=== PATIENT | female | born 1965 | race Two or more races ===

== ENCOUNTER → 2018-02-07 | Emergency (ER) | payer OTHER ==
[~2018-02-07] VITALS: Ht 167.6 cm; Wt 62.6 kg
[~2018-02-07] MED LIST: CLONAZEPAM1 MG; DICY20TA; FIORICET 50-301 EACH; FLEXERIL10 MG; INTESTINEX680 MG PO; LAMICTAL150 M1; LAMICTAL200 M1; LEVSIN/SL0.125 MG PO; LYRICA300 MG; NORFLEX100MG; PEPCID40 MG PO; PHENERGAN25 MG PO; PRILOSEC OTC20 MG; SEROQUEL XR150 MG; TOPAMAX50 MG; WELLBUTRIN SR100 MG; ZANTAC150 MG PO; ZANTAC300 MG
== END | disposition home or self-care (01) ==
LOC: ER 21:40
DX: K29.60 Other gastritis without bleeding (principal); R10.13 Epigastric pain

== ENCOUNTER 2018-11-20 07:26 | Outpatient (CLI) | payer OTHER | END 2018-11-20 07:33 | disposition home or self-care (01) | LOC: SONOGRAMA 07:26 | DX: E04.2 Nontoxic multinodular goiter (principal) ==

== ENCOUNTER 2019-02-15 05:57 | Emergency (ER) | payer OTHER ==
[~2019-02-15] VITALS: Ht 167.6 cm; Wt 59.0 kg
[2019-02-15] MEDS ORDERED: SYNTHROID50 MCG (06:16)
== END 2019-02-15 11:24 | disposition home or self-care (01) ==
LOC: ER 05:57
DX: K29.60 Other gastritis without bleeding (principal); N39.0 Urinary tract infection, site not specified; B96.89 Other specified bacterial agents as the cause of diseases classified elsewhere

== ENCOUNTER → 2019-05-30 | Outpatient (CLI) | payer OTHER ==
[~2019-05-30] MED LIST changes: +SYNTHROID50 MCG
== END | disposition home or self-care (01) ==
LOC: RAD 10:15
DX: M54.5 Low back pain (principal)

== ENCOUNTER 2019-12-28 07:21 | Outpatient (CLI) | payer OTHER | END 2019-12-28 07:24 | disposition home or self-care (01) | LOC: SONOGRAMA 07:21 | DX: E04.1 Nontoxic single thyroid nodule (principal) ==

== ENCOUNTER 2020-02-12 07:14 | Outpatient (CLI) | payer OTHER | END 2020-02-12 07:31 | disposition home or self-care (01) | LOC: NUCLEAR 07:14 | DX: R07.89 Other chest pain (principal) ==

== ENCOUNTER → 2020-05-12 | Outpatient (CLI) | payer OTHER | END | disposition home or self-care (01) | LOC: NUCLEAR 05-02 12:00 | PROVIDERS: ATTEND Obstetrics & Gynecology | DX: M81.0 Age-related osteoporosis without current pathological fracture (principal) ==

== ENCOUNTER 2020-08-11 16:09 | Outpatient (CLI) | payer OTHER | END 2020-08-11 16:15 | disposition home or self-care (01) | LOC: RAD 16:09 | PROVIDERS: ATTEND Internal Medicine | DX: M25.571 Pain in right ankle and joints of right foot (principal) ==

== ENCOUNTER 2021-01-29 16:49 | Emergency (ER) | payer OTHER ==
[~2021-01-29] VITALS: Ht 165.1 cm; Wt 68.0 kg
[2021-01-29] MEDS ORDERED: INVEGA6 MG PO (17:12)
[2021-01-29] MEDS ORDERED: ATIVAN1 M1 PO (17:13)
[2021-01-29] MEDS ORDERED: INTERMEZZO3.5 MG SL (17:13)
[2021-01-29] MEDS ORDERED: ACID REDUCER20 M1 PO (17:14)
== END 2021-01-29 21:24 | disposition home or self-care (01) ==
LOC: ER 16:49
DX: S00.83XA Contusion of other part of head, initial encounter (principal); S60.212A Contusion of left wrist, initial encounter; R55 Syncope and collapse; W01.198A Fall on same level from slipping, tripping and stumbling with subsequent striking against other object, initial encounter; Y93.E1 Activity, personal bathing and showering; Y92.012 Bathroom of single-family (private) house as the place of occurrence of the external cause; Y99.8 Other external cause status

== ENCOUNTER 2021-02-07 08:02 | Outpatient (CLI) | payer OTHER ==
[~2021-02-07 08:02] MED LIST changes: +ACID REDUCER20 M1 PO; +ATIVAN1 M1 PO; +INTERMEZZO3.5 MG SL; +INVEGA6 MG PO
== END 2021-02-07 08:04 | disposition home or self-care (01) ==
LOC: NUCLEAR 08:02
PROVIDERS: ATTEND Psychiatry & Neurology Clinical Neurophysiology
DX: R55 Syncope and collapse (principal)

== ENCOUNTER 2021-09-18 08:00 | Outpatient (CLI) | payer OTHER | END 2021-09-18 08:30 | disposition home or self-care (01) | LOC: PPH VACUNA 08:00 | PROVIDERS: ATTEND Emergency Medicine Pediatric Emergency Medicine | DX: Z23 Encounter for immunization (principal) ==

== ENCOUNTER 2021-12-18 22:46 | Emergency (ER) | payer OTHER ==
[~2021-12-18] VITALS: Ht 165.1 cm; Wt 75.3 kg
== END 2021-12-19 02:50 | disposition home or self-care (01) ==
LOC: ER 22:46
DX: R10.13 Epigastric pain (principal); M79.7 Fibromyalgia; G43.909 Migraine, unspecified, not intractable, without status migrainosus; K21.9 Gastro-esophageal reflux disease without esophagitis

== ENCOUNTER 2021-12-24 18:34 | Emergency (ER) | payer OTHER ==
[~2021-12-24] VITALS: Ht 165.1 cm; Wt 72.6 kg
== END 2021-12-24 22:08 | disposition home or self-care (01) ==
LOC: ER 18:34
DX: K52.89 Other specified noninfective gastroenteritis and colitis (principal); R10.11 Right upper quadrant pain

== ENCOUNTER 2022-01-29 08:00 | Outpatient (CLI) | payer OTHER | END 2022-01-29 08:30 | disposition home or self-care (01) | LOC: PPH VACUNA 08:00 | PROVIDERS: ATTEND Emergency Medicine Pediatric Emergency Medicine | DX: Z23 Encounter for immunization (principal) ==

== ENCOUNTER 2022-03-08 11:27 | Outpatient (CLI) | payer OTHER | END 2022-03-08 11:35 | disposition home or self-care (01) | LOC: RAD 11:27 | PROVIDERS: ATTEND Physical Medicine & Rehabilitation | DX: M54.59 Other low back pain (principal) ==

== ENCOUNTER 2022-07-31 07:40 | Outpatient (CLI) | payer OTHER | END 2022-07-31 07:46 | disposition home or self-care (01) | LOC: SONOGRAMA 07:40 | PROVIDERS: ATTEND Student in an Organized Health Care Education/Training Program | DX: R31.9 Hematuria, unspecified (principal) ==

== ENCOUNTER 2022-09-13 06:06 | Outpatient (CLI) | payer OTHER | END 2022-09-13 06:07 | disposition home or self-care (01) | LOC: LAB 06:06 | PROVIDERS: ATTEND Internal Medicine | DX: U07.1 COVID-19 (principal); B34.1 Enterovirus infection, unspecified ==

== ENCOUNTER 2022-09-14 07:34 | Outpatient (CLI) | payer OTHER | END 2022-09-14 07:37 | disposition home or self-care (01) | LOC: NUCLEAR 07:34 | PROVIDERS: ATTEND Internal Medicine Cardiovascular Disease | DX: R07.89 Other chest pain (principal) | CPT/HCPCS: 78452; 93017; A9500 ==

== ENCOUNTER 2022-10-10 12:51 | Outpatient (CLI) | payer OTHER | END 2022-10-10 13:01 | disposition home or self-care (01) | LOC: PPH VACUNA 12:51 | PROVIDERS: ATTEND Emergency Medicine Pediatric Emergency Medicine | DX: Z23 Encounter for immunization (principal) ==

== ENCOUNTER 2024-05-04 10:50 | Outpatient (CLI) | payer OTHER | END 2024-05-04 10:57 | disposition home or self-care (01) | LOC: RAD 10:50 | DX: M79.671 Pain in right foot (principal) ==

== ENCOUNTER 2024-08-24 08:18 | Outpatient (CLI) | payer OTHER | END 2024-08-24 08:22 | disposition home or self-care (01) | LOC: SONOGRAMA 08:18 | PROVIDERS: ATTEND Pathology Anatomic Pathology | DX: D34 Benign neoplasm of thyroid gland (principal); E07.89 Other specified disorders of thyroid; R59.0 Localized enlarged lymph nodes; E04.2 Nontoxic multinodular goiter ==

== ENCOUNTER 2024-10-21 19:35 | Emergency (ER) | payer OTHER ==
[~2024-10-21] VITALS: Ht 152.4 cm; Wt 62.6 kg
[2024-10-21] MEDS ORDERED: DEPAKOTE ER500 MG PO (19:45)
[2024-10-21] MEDS ORDERED: LYRICA100 MG PO (19:45)
[2024-10-21 19:46] VITALS: BP 97/65; O2SAT 100
[2024-10-21] MEDS ORDERED: SYNTHROID50 MCG PO (19:46)
[2024-10-21] MEDS ORDERED: LEXAPRO20 MG PO (19:46)
[2024-10-21] MEDS ORDERED: KETOROLAC TROMETHAMINE 60 MG VIAL IM ONE (22:15)
[2024-10-21 23:08] LABS: PH,URINE 5.5 (5.0-8.0); URINE APPEARANCE Clear; URINE BILIRRUBIN Small (NEGATIVE); URINE BLOOD NHT; URINE COLOR Dark Yellow; URINE GLUCOSE Negative (NEGATIVE); URINE KETONE Trace (NEGATIVE); URINE LEUKOCYTE Small; URINE NITRATE Positive; URINE PROTEIN 30 (NEGATIVE)
[2024-10-21 23:10] LABS: HEMATOCRIT 41.7 % (36.0-45.00); HEMOGLOBIN 13.9 g/dL (12.0-15.00); MEAN CELL VOLUME 100.4 fL (80.00-100.00); MEAN CORPUSCULAR HEMOGLOBIN 33.6 pg (27.00-32.0); MEAN CORPUSCULAR HGB CONC 33.4 g/dl (32.0-36.0); PLATELET COUNT 149 K/uL (150-450); RED BLOOD COUNT 4.15 M/uL (4.00-6.00)
[2024-10-21 23:12] LABS: URINE BACTERIA 326.6 uL (0.0-1933); URINE EPITHELIAL CELLS 17.8 uL (0.0-38.8); URINE RBC 122.8 uL (0.0-20.8); URINE WBC 97.3 uL (0.0-23.2)
[2024-10-21 23:22] LABS: URINE CAST 0.44 uL (0.0-1.40)
[2024-10-22] MEDS ORDERED: CEFTRIAXONE SODIUM 1,000 MG VIAL IM STA (03:18)
[2024-10-22] MEDS ORDERED: KETO10TA2 PO (03:21)
[2024-10-22] MEDS ORDERED: CEPHALEXIN500 MG PO (03:21)
== END 2024-10-22 02:03 | disposition home or self-care (01) ==
LOC: ER 19:37
PROVIDERS: Preventive Medicine Public Health & General Preventive Medicine
DX: S19.9XXA Unspecified injury of neck, initial encounter (principal); W19.XXXA Unspecified fall, initial encounter; Y93.89 Activity, other specified; Y92.098 Other place in other non-institutional residence as the place of occurrence of the external cause; Y99.8 Other external cause status; N39.0 Urinary tract infection, site not specified; R55 Syncope and collapse; E03.8 Other specified hypothyroidism; Z20.822 Contact with and (suspected) exposure to COVID-19
CPT/HCPCS: 36415; 70450; 72125; 96372; 99284; J0696; J1885

== ENCOUNTER 2024-11-25 17:57 | Inpatient (IN) | payer OTHER ==
[~2024-11-25] VITALS: Ht 167.6 cm; Wt 72.6 kg
[~2024-11-25 17:57] MED LIST changes: +CEPHALEXIN500 MG PO; +DEPAKOTE ER500 MG PO; +KETO10TA2 PO; +LEXAPRO20 MG PO; +LYRICA100 MG PO; +SYNTHROID50 MCG PO
--- NOTE | 2024-11-25 18:27 | NUR ---
SE RECIBE PACIENTE ALERTA Y ORIENTADA X3 LA CUAL REFIERE VENIR A CAUSA DE DOLOR ABDOMINAL DESDE Y DIARREAS DESDE EL SABADO PASADO.
[2024-11-25] MEDS ORDERED: FAMOtidine 10 MG/ML (4ML VIAL) IV ONE ×2 (18:45→21:45)
[2024-11-25] MEDS ORDERED: KETOROLAC TROMETHAMINE 60 MG VIAL IM ONE (18:45)
[2024-11-25] MEDS ORDERED: KETOROLAC TROMETHAMINE 30 MG VIAL ONE (18:58)
[2024-11-25] MEDS ORDERED: FAMOTIDINE/PF 20 MG/2 ML VIAL ONE ×2 (18:58→22:43)
--- NOTE | 2024-11-25 19:17 | NUR ---
SE ORIENTA PTE SOBRE TX MEDICO EL CUAL REFIERE ENTENDER.SE LE EXTRAEN MUESTRAS BAJO MEDIDAS ASEPTICAS,SE CANALIZA Y SE ADMINISTRAN MEDICAMENTOS,SE NOTIFICA CT PENDIENTE.
[2024-11-25 19:37] LABS: INR 1.1; PARTIAL THROMBOPLASTIN TIME 29.1 SECONDS (22.0-34.0); PROTHROMBIN TIME 11.9 SECONDS (9.0-11.5)
[2024-11-25 19:41] LABS: ALBUMIN 3.3 gm/dL (3.4-5.0); BILIRUBIN TOTAL 0.38 mg/dL (0.3-1.2); CALCIUM 9.1 mg/dL (8.5-10.1); CREATININE SERUM 0.88 mg/dL (0.55-1.02); GFR 66.23; GLOBULINA 3.4 G/DL (2.4-3.5); POTASSIUM 4.59 mEq/L (3.5-5.1); TOTAL PROTEIN 6.7 gm/dL (6.4-8.2)
[2024-11-25 20:12] LABS: PH,URINE 5.5 (5.0-8.0); URINE APPEARANCE Clear; URINE BILIRRUBIN Negative (NEGATIVE); URINE BLOOD Negative; URINE COLOR Dark Yellow; URINE GLUCOSE Negative (NEGATIVE); URINE KETONE Trace (NEGATIVE); URINE LEUKOCYTE Trace; URINE NITRATE Negative; URINE PROTEIN Negative (NEGATIVE)
[2024-11-25 20:16] LABS: URINE EPITHELIAL CELLS 24.2 uL (0.0-38.8); URINE RBC 12.6 uL (0.0-20.8)
[2024-11-25 20:52] LABS: HEMATOCRIT 39.6 % (36.0-45.00); HEMOGLOBIN 13.6 g/dL (12.0-15.00); MEAN CELL VOLUME 98.7 fL (80.00-100.00); MEAN CORPUSCULAR HEMOGLOBIN 33.8 pg (27.00-32.0); MEAN CORPUSCULAR HGB CONC 34.3 g/dl (32.0-36.0); PLATELET COUNT 148 K/uL (150-450); RED BLOOD COUNT 4.01 M/uL (4.00-6.00); RED CELL DISTRIBUTION WIDTH 13.1 % (11.5-14.5)
[2024-11-25] MEDS ORDERED: CEFTRIAXONE SODIUM 1,000 MG VIAL IV ONE (21:00)
[2024-11-25] MEDS ORDERED: CEFTRIAXONE SODIUM 1,000 MG VIAL ONE (21:01)
[2024-11-25] MEDS ORDERED: MORPHINE SULFATE 4 MG/ML VIAL IV ONE (21:45)
[2024-11-25] MEDS ORDERED: ONDANSETRON HCL 2 MG/ML VIAL IV ONE (21:45)
[2024-11-25] MEDS ORDERED: ONDANSETRON HCL 2 MG/ML VIAL ONE (22:43)
[2024-11-25] MEDS ORDERED: 0.9 % SODIUM CHLORIDE 1,000 ML IV SCH (23:45)
[2024-11-25] MEDS ORDERED: ACETAMINOPHEN 500 MG GEL..CAP PO PRN (23:45)
[2024-11-25] MEDS ORDERED: MORPHINE SULFATE 4 MG/ML CARTRIDGE IV PRN (23:45)
[2024-11-25] MEDS ORDERED: KETOROLAC TROMETHAMINE 30 MG VIAL IU ONE (23:45)
[2024-11-25] MEDS ORDERED: ONDANSETRON HCL 4 MG in 0.9 % SODIUM CHLORIDE 50 ML IV PRN (23:45)
[2024-11-26] MEDS ORDERED: PIPERACILLIN/TAZOBACTAM SODIUM 3.375 GM in DEXTROSE 5 % IN WATER 100 ML IV SCH
[2024-11-26] MEDS ORDERED: PIPERACILLIN/TAZOBACTAM SODIUM 3.375 GM VIAL IV ONE ×2 (00:51→16:45)
[2024-11-26] MEDS ORDERED: KETOROLAC TROMETHAMINE 30 MG VIAL ONE (00:51)
[2024-11-26] MEDS ORDERED: ONDANSETRON HCL 2 MG/ML VIAL ONE (02:18)
[2024-11-26 03:14] VITALS: BP 120/66
[2024-11-26] MEDS ORDERED: LEVOTHYROXINE SODIUM 50 MCG TABLET PO SCH (06:00)
[2024-11-26 07:29] VITALS: BP 126/82; O2SAT 100
[2024-11-26] MEDS ORDERED: Pregabalin 50 MG CAPSULE PO SCH (09:00)
[2024-11-26] MEDS ORDERED: DIVALPROEX SODIUM 500 MG TABLET.DR PO SCH (09:00)
[2024-11-26] MEDS ORDERED: FAMOTIDINE/PF 20 MG in 0.9 % SODIUM CHLORIDE 8 ML IV PUSH SCH (09:00)
[2024-11-26 15:00] VITALS: BP 123/76; O2SAT 97
[2024-11-26] MEDS ORDERED: ENOXAPARIN SODIUM 40 MG/0.4 ML SYRINGE SUBCUTANEO SCH (17:00)
[2024-11-26] MEDS ORDERED: DICYCLOMINE HCL 10 MG CAPSULE PO SCH (17:00)
[2024-11-26 22:42] VITALS: BP 123/61
[2024-11-27 01:53] VITALS: BP 109/64
[2024-11-27 06:37] LABS: HEMATOCRIT 37.6 % (36.0-45.00); HEMOGLOBIN 12.6 g/dL (12.0-15.00); MEAN CORPUSCULAR HEMOGLOBIN 33.8 pg (27.00-32.0); MEAN CORPUSCULAR HGB CONC 33.5 g/dl (32.0-36.0); RED BLOOD COUNT 3.73 M/uL (4.00-6.00)
[2024-11-27 06:47] LABS: PLATELET COUNT 126 K/uL (150-450)
[2024-11-27 07:00] LABS: CALCIUM 8.5 mg/dL (8.5-10.1); CREATININE SERUM 0.83 mg/dL (0.55-1.02); GFR 70.86; POTASSIUM 5.12 mEq/L (3.5-5.1)
[2024-11-27 08:50] VITALS: BP 113/62
[2024-11-28] MEDS ORDERED: TRAZODONE HCL150 MG (21:51)
[2024-11-28] MEDS ORDERED: CELEBREX200MG (21:51)
[2024-11-28] MEDS ORDERED: BUSPIRONE HCL15 MG PO (21:51)
== END 2024-11-27 14:11 | disposition home or self-care (01) | DRG 395 ==
LOC: ER 18:00 → MEDJ 23:45 → SEC-K 23:45 → MEDJ 11-26 16:19
PROVIDERS: General Practice; ADMIT Student in an Organized Health Care Education/Training Program; ATTEND Student in an Organized Health Care Education/Training Program
PROC: BW21ZZZ Computerized Tomography (CT Scan) of Abdomen and Pelvis (ICD-10-PCS; principal; 2024-11-25)
DX: K35.80 Unspecified acute appendicitis (principal); E03.9 Hypothyroidism, unspecified

== ENCOUNTER 2024-11-28 21:30 | Inpatient (IN) | payer OTHER ==
[~2024-11-28] VITALS: Ht 165.1 cm; Wt 61.2 kg
[2024-11-28] MEDS ORDERED: CELEBREX200MG (21:51)
[2024-11-28] MEDS ORDERED: BUSPIRONE HCL15 MG PO (21:51)
[2024-11-28] MEDS ORDERED: TRAZODONE HCL150 MG (21:51)
[2024-11-29] MEDS ORDERED: FAMOTIDINE/PF 20 MG in 0.9 % SODIUM CHLORIDE 8 ML IV PUSH STA (00:18)
[2024-11-29] MEDS ORDERED: PIPERACILLIN/TAZOBACTAM SODIUM 3.375 GM in 0.9 % SODIUM CHLORIDE 100 ML IV SCH (00:19)
[2024-11-29] MEDS ORDERED: PIPERACILLIN/TAZOBACTAM SODIUM 3.375 GM VIAL IV ONE ×3 (00:22→18:53)
[2024-11-29] MEDS ORDERED: ONDANSETRON HCL 2 MG/ML VIAL ONE (00:22)
[2024-11-29] MEDS ORDERED: FAMOTIDINE/PF 20 MG/2 ML VIAL ONE ×2 (00:22→18:53)
[2024-11-29] MEDS ORDERED: KETOROLAC TROMETHAMINE 30 MG VIAL ONE (00:22)
[2024-11-29] MEDS ORDERED: ONDANSETRON HCL 2 MG/ML VIAL IV ONE (00:30)
[2024-11-29] MEDS ORDERED: 0.9 % SODIUM CHLORIDE 1,000 ML IV SCH (00:30)
[2024-11-29] MEDS ORDERED: KETOROLAC TROMETHAMINE 30 MG VIAL IV ONE (00:30)
[2024-11-29 00:59] LABS: HEMOGLOBIN 13.7 g/dL (12.0-15.00); MEAN CELL VOLUME 101.1 fL (80.00-100.00); MEAN CORPUSCULAR HEMOGLOBIN 33.8 pg (27.00-32.0); MEAN CORPUSCULAR HGB CONC 33.5 g/dl (32.0-36.0); PLATELET COUNT 150 K/uL (150-450); RED BLOOD COUNT 4.06 M/uL (4.00-6.00); RED CELL DISTRIBUTION WIDTH 13.3 % (11.5-14.5)
[2024-11-29 02:49] LABS: INR 1.1; PARTIAL THROMBOPLASTIN TIME 29.5 SECONDS (22.0-34.0); PROTHROMBIN TIME 11.9 SECONDS (9.0-11.5)
[2024-11-29 02:55] LABS: ALBUMIN 3.1 gm/dL (3.4-5.0); BILIRUBIN TOTAL 0.44 mg/dL (0.3-1.2); CALCIUM 9.1 mg/dL (8.5-10.1); CREATININE SERUM 0.92 mg/dL (0.55-1.02); GFR 62.92; GLOBULINA 3.2 G/DL (2.4-3.5); POTASSIUM 5.62 mEq/L (3.5-5.1); TOTAL PROTEIN 6.3 gm/dL (6.4-8.2)
[2024-11-29 08:47] LABS: PH,URINE 7.5 (5.0-8.0); URINE APPEARANCE Clear; URINE BILIRRUBIN Negative (NEGATIVE); URINE BLOOD Negative; URINE COLOR Yellow; URINE GLUCOSE Negative (NEGATIVE); URINE KETONE Negative (NEGATIVE); URINE LEUKOCYTE Negative; URINE NITRATE Negative; URINE PROTEIN Negative (NEGATIVE); URINE RBC 3.6 uL (0.0-20.8); URINE UROBILINOGEN 0.2 E.U./dl
[2024-11-29 08:51] LABS: URINE BACTERIA 0 uL (0.0-1933); URINE EPITHELIAL CELLS 0.6 uL (0.0-38.8)
[2024-11-29] MEDS ORDERED: SODIUM CHLORIDE 0.45 % 1,000 ML IV SCH (17:45)
[2024-11-29] MEDS ORDERED: MORPHINE SULFATE 2 MG/ML CARTRIDGE IV PRN (17:45)
[2024-11-29] MEDS ORDERED: ONDANSETRON HCL 4 MG in 0.9 % SODIUM CHLORIDE 50 ML IV PRN (17:45)
[2024-11-29] MEDS ORDERED: FAMOTIDINE/PF 20 MG in 0.9 % SODIUM CHLORIDE 8 ML IV PUSH SCH (17:55)
[2024-11-29] MEDS ORDERED: SODIUM POLYSTYRENE SULFONATE 15 G/4 TSP TSP PO ONE (18:00)
[2024-11-29] MEDS ORDERED: HYOSCYAMINE SULFATE 0.125 MG TAB.SUBL PO ONE (18:00)
[2024-11-29] MEDS ORDERED: PIPERACILLIN/TAZOBACTAM SODIUM 3.375 GM in DEXTROSE 5 % IN WATER 100 ML IV SCH (18:04)
[2024-11-29] MEDS ORDERED: HYOSCYAMINE SULFATE 0.125 MG TAB.SUBL ONE (18:52)
[2024-11-30 00:45] VITALS: BP 103/69; O2SAT 100
[2024-11-30] MEDS ORDERED: LEVOTHYROXINE SODIUM 50 MCG TABLET PO SCH (06:00)
[2024-11-30 08:00] VITALS: BP 109/78; O2SAT 99
[2024-11-30] MEDS ORDERED: ENOXAPARIN SODIUM 40 MG/0.4 ML SYRINGE SUBCUTANEO SCH (09:00)
[2024-11-30] MEDS ORDERED: DIVALPROEX SODIUM 500 MG TABLET.DR PO SCH (09:00)
[2024-11-30] MEDS ORDERED: Pregabalin 50 MG CAPSULE PO SCH (09:00)
[2024-11-30] MEDS ORDERED: PANTOPRAZOLE SODIUM 40 MG/VIAL VIAL IV SCH (09:00)
[2024-11-30 16:00] VITALS: BP 113/76; O2SAT 95
[2024-12-01 01:56] VITALS: BP 111/71; O2SAT 96
[2024-12-01 05:26] LABS: HEMATOCRIT 38.6 % (36.0-45.00); MEAN CELL VOLUME 100.2 fL (80.00-100.00); MEAN CORPUSCULAR HEMOGLOBIN 33.7 pg (27.00-32.0); MEAN CORPUSCULAR HGB CONC 33.6 g/dl (32.0-36.0); PLATELET COUNT 166 K/uL (150-450); RED BLOOD COUNT 3.86 M/uL (4.00-6.00); RED CELL DISTRIBUTION WIDTH 13.1 % (11.5-14.5)
[2024-12-01 05:57] LABS: ALBUMIN 3.1 gm/dL (3.4-5.0); BILIRUBIN TOTAL 0.55 mg/dL (0.3-1.2); CALCIUM 9.5 mg/dL (8.5-10.1); GFR 57.15; GLOBULINA 2.8 G/DL (2.4-3.5); MAGNESIUM 2.1 mg/dL (1.8-2.4); PHOSPHOROUS 3.7 mg/dL (2.5-4.9); POTASSIUM 5.05 mEq/L (3.5-5.1); TOTAL PROTEIN 5.9 gm/dL (6.4-8.2)
[2024-12-01 05:59] LABS: C-REACTIVE PROTEIN 0.3 MG/DL (0.00-0.29)
[2024-12-01 08:00] VITALS: BP 123/85; O2SAT 99
[2024-12-01] MEDS ORDERED: 0.9 % SODIUM CHLORIDE 1,000 ML IV SCH (09:00)
[2024-12-01] MEDS ORDERED: DICYCLOMINE HCL 10 MG CAPSULE PO SCH (09:00)
[2024-12-01 16:15] VITALS: BP 111/71; O2SAT 99
[2024-12-01] MEDS ORDERED: TRAZODONE HCL 50 MG TABLET PO SCH (21:00)
[2024-12-02 08:00] VITALS: BP 105/63; O2SAT 98
== END 2024-12-02 11:37 | disposition home or self-care (01) | DRG 392 ==
LOC: ER 21:32 → SURH 11-29 19:59
PROVIDERS: General Practice; Internal Medicine Infectious Disease; ADMIT Internal Medicine; ATTEND Internal Medicine
DX: K29.00 Acute gastritis without bleeding (principal); E87.0 Hyperosmolality and hypernatremia; E87.5 Hyperkalemia; R63.0 Anorexia

== ENCOUNTER 2025-02-04 10:25 | Outpatient (CLI) | payer OTHER ==
[~2025-02-04 10:25] MED LIST changes: +BUSPIRONE HCL15 MG PO; +CELEBREX200MG; +TRAZODONE HCL150 MG
== END 2025-02-04 10:34 | disposition home or self-care (01) ==
LOC: RAD 10:25
PROVIDERS: ATTEND Physical Medicine & Rehabilitation
DX: M79.641 Pain in right hand (principal)

== ENCOUNTER 2025-07-01 09:13 | Outpatient (CLI) | payer OTHER | END 2025-07-01 09:14 | disposition home or self-care (01) | LOC: NUCLEAR 09:13 | PROVIDERS: ATTEND Internal Medicine Gastroenterology | DX: R10.11 Right upper quadrant pain (principal) | CPT/HCPCS: 78227; A9537 ==

== ENCOUNTER 2025-08-24 16:13 | Outpatient (CLI) | payer OTHER | END 2025-08-24 16:16 | disposition home or self-care (01) | LOC: RAD 16:13 | PROVIDERS: ATTEND Obstetrics & Gynecology | DX: R05.1 Acute cough (principal) ==

== ENCOUNTER → 2025-09-26 | Emergency (ER) | payer OTHER ==
[~2025-09-26] VITALS: Ht 165.1 cm; Wt 63.5 kg
[~2025-09-26] MED LIST changes: +0.9 % SODIUM CHLORIDE 1,000 ML IV SCH; +FAMOtidine 10 MG/ML (4ML VIAL) IV PUSH ONE; +KETOROLAC TROMETHAMINE 30 MG VIAL IU ONE; +ONDANSETRON HCL 2 MG/ML VIAL IV ONE; +PEPCID AC20 MG PO; +PROTONIX40 MG PO; +ZOFRAN8 MG PO
[2025-09-26 21:28] LABS: BASO % 0.3 % (0.1-1.2); EOS # 0.06 (0.04-0.54); EOS % 1.0 % (0.7-7.0); LYMPH # 2.45 (1.18-3.74); LYMPH % 42.8 % (19.3-53.1); MEAN PLATELET VOLUME 10.30 fl (9.4-12.4); MONO # 0.61 (0.24-0.82); MONO % 10.7 % (4.7-12.5); NEUT # 2.56 (1.56-6.13); NEUT % 44.9 % (34.0-71.1); RED CELL DISTRIBUTION WIDTH 12.6 % (11.6-14.4)
[2025-09-26 21:40] LABS: ERYTHROCYTE SEDIMENTATION RATE 3 mm/hr (0-30)
[2025-09-26 21:48] LABS: URINE APPEARANCE Clear; URINE BILIRRUBIN Negative (NEGATIVE); URINE BLOOD Negative; URINE COLOR Yellow; URINE GLUCOSE Negative (NEGATIVE); URINE KETONE Trace (NEGATIVE); URINE LEUKOCYTE Small; URINE NITRATE Negative; URINE PROTEIN Negative (NEGATIVE); URINE UROBILINOGEN 0.2 E.U./dl
[2025-09-26 21:51] LABS: URINE BACTERIA 9.6 uL (0.0-1933); URINE EPITHELIAL CELLS 1.5 uL (0.0-38.8); URINE RBC 12.1 uL (0.0-20.8); URINE WBC 11.0 uL (0.0-23.2)
[2025-09-26 21:52] LABS: INR 1.06
[2025-09-26 21:59] LABS: URINE CAST 0.00 uL (0.0-1.40)
[2025-09-26 22:22] LABS: ALT/SGPT 26.0 U/L (12-78); AST/SGOT 26.0 U/L (15-37); BILIRUBIN TOTAL 0.37 mg/dL (0.3-1.2); BUN CREA RATIO 30.0 (7.0-25.0); CREATININE SERUM 0.69 mg/dL (0.55-1.02); GFR 87.38; GLOBULINA 3.8 G/DL (2.4-3.5); GLUCOSE FASTING 97.0 mg/dL (65-100); OSMOLALITY SERUM 290.0 MOSM/KG (275-295)
== END | disposition home or self-care (01) ==
LOC: ER 16:08
PROVIDERS: General Practice
DX: R10.31 Right lower quadrant pain (principal); K29.70 Gastritis, unspecified, without bleeding; M79.7 Fibromyalgia; E03.8 Other specified hypothyroidism; M54.10 Radiculopathy, site unspecified; F41.8 Other specified anxiety disorders; K52.89 Other specified noninfective gastroenteritis and colitis; K59.00 Constipation, unspecified
CPT/HCPCS: 36415; 74177; 96365; 96366; 99284; J1885; J2405; J3490; J7030; Q9965

== ENCOUNTER → 2025-10-04 | Emergency (ER) | payer OTHER ==
[~2025-10-04] VITALS: Ht 165.1 cm; Wt 63.5 kg
[~2025-10-04] MED LIST changes: -0.9 % SODIUM CHLORIDE 1,000 ML IV SCH; +ACETAMINOPHEN 500 MG GEL..CAP PO ONE; +DEXAMETHASONE SODIUM PHOSPHATE 4 MG/ML VIAL IM ONE; +DEXAMETHASONE SODIUM PHOSPHATE 4 MG/ML VIAL ONE; -FAMOtidine 10 MG/ML (4ML VIAL) IV PUSH ONE; +IBUPROFEN600 MG PO; -KETOROLAC TROMETHAMINE 30 MG VIAL IU ONE; +KETOROLAC TROMETHAMINE 60 MG VIAL IM ONE; +NORFLEX100MG PO; -ONDANSETRON HCL 2 MG/ML VIAL IV ONE; +ORPHENADRINE CITRATE 30 MG/ML AMPUL IM ONE; +ORPHENADRINE CITRATE 30 MG/ML AMPUL ONE
== END | disposition home or self-care (01) ==
LOC: ER 16:57
DX: M25.512 Pain in left shoulder (principal); M79.7 Fibromyalgia; K29.70 Gastritis, unspecified, without bleeding; E06.3 Autoimmune thyroiditis; F41.8 Other specified anxiety disorders
CPT/HCPCS: 96372; 99282; J1100; J1885; J2360

== ENCOUNTER → 2025-10-08 | Outpatient (CLI) | payer OTHER ==
[~2025-10-08] MED LIST changes: -ACETAMINOPHEN 500 MG GEL..CAP PO ONE; -DEXAMETHASONE SODIUM PHOSPHATE 4 MG/ML VIAL IM ONE; -DEXAMETHASONE SODIUM PHOSPHATE 4 MG/ML VIAL ONE; -KETOROLAC TROMETHAMINE 60 MG VIAL IM ONE; -ORPHENADRINE CITRATE 30 MG/ML AMPUL IM ONE; -ORPHENADRINE CITRATE 30 MG/ML AMPUL ONE
== END | disposition home or self-care (01) ==
LOC: RAD 09:19
PROVIDERS: ATTEND Physical Medicine & Rehabilitation
DX: M25.512 Pain in left shoulder (principal); M25.531 Pain in right wrist